=== PATIENT | female | born 1960 | race Caucasian/White ===

== ENCOUNTER → 2017-06-14 | Outpatient (CLI) | payer BC ==
[~2017-06-14] MED LIST: ALDACTONE; MEDROL DOSEPAK4 MG PO; PRAVACHOL; PRAVASTATIN SOD20 MG PO; PREMPRO 0.625 M1 TAB PO; SPIRONOLACTONE50 MG PO; SYNTHROID; SYNTHROID0.2 M1 PO; [UNRECOGNIZED DRUG - REMARK]
[2017-06-14 09:07] LABS: ALKALINE PHOSPHATASE 74 U/L (45-117); BILIRUBIN, DIRECT 0.1 mg/dL (0.0-0.2); BUN 12 mg/dl (7-24); CHLORIDE 100 mmol/L (98-107); CHOLESTEROL 173 mg/dL (<200); CREATININE 0.91 mg/dL (0.55-1.02); FREE T4 1.27 ng/dl (0.76-1.46); HDL CHOLESTEROL 46 mg/dl (40-60); LDL CHOLESTEROL 103 mg/dL (9-159); POTASSIUM 4.5 mmol/L (3.5-5.1); SGOT/AST 22 IU/L (3-35); SGPT/ALT 31 U/L (12-78); SODIUM 137 mmol/L (136-145); TRIGLYCERIDES 121 mg/dl (<150); VLDL CHOLESTEROL 24 mg/dL (6-40)
[2017-06-14 09:11] LABS: THYROID STIM HORMONE (HS) 0.954 uIU/ml (0.358-4.75)
== END | disposition home or self-care (01) ==
LOC: LAB 08:12
PROVIDERS: Internal Medicine
DX: E03.8 Other specified hypothyroidism (principal); I10 Essential (primary) hypertension; E78.4 Other hyperlipidemia; R73.03 Prediabetes; Z79.1 Long term (current) use of non-steroidal anti-inflammatories (NSAID)

== ENCOUNTER → 2017-12-12 | Outpatient (CLI) | payer BC ==
[2017-12-12 07:55] LABS: ALBUMIN 4.1 gm/dl (3.1-4.5); ALKALINE PHOSPHATASE 65 U/L (45-117); BILIRUBIN, DIRECT 0.1 mg/dL (0.0-0.2); BUN 15 mg/dl (7-24); CHLORIDE 103 mmol/L (98-107); CHOLESTEROL 184 mg/dL (<200); CREATININE 0.91 mg/dL (0.55-1.02); FREE T4 1.15 ng/dl (0.76-1.46); HDL CHOLESTEROL 47 mg/dl (40-60); LDL CHOLESTEROL 105 mg/dL (9-159); POTASSIUM 4.4 mmol/L (3.5-5.1); SGOT/AST 27 IU/L (3-35); SGPT/ALT 25 U/L (12-78); SODIUM 137 mmol/L (136-145); TOTAL PROTEIN 7.8 gm/dL (6.4-8.2); TRIGLYCERIDES 158 mg/dl (<150); VLDL CHOLESTEROL 32 mg/dL (6-40)
== END | disposition home or self-care (01) ==
LOC: LAB 06:58
PROVIDERS: Internal Medicine
DX: E78.4 Other hyperlipidemia (principal); E03.8 Other specified hypothyroidism; K76.0 Fatty (change of) liver, not elsewhere classified; I10 Essential (primary) hypertension; R73.02 Impaired glucose tolerance (oral)

== ENCOUNTER → 2018-01-21 | Outpatient (CLI) | payer BC ==
[2018-01-21 18:24] LABS: FREE T4 1.04 ng/dl (0.76-1.46)
[2018-01-21 18:29] LABS: THYROID STIM HORMONE (HS) 1.34 uIU/ml (0.358-4.75)
== END | disposition home or self-care (01) ==
LOC: LAB 17:29
PROVIDERS: Internal Medicine
DX: E03.8 Other specified hypothyroidism (principal)